=== PATIENT | male | born 1955 | race African-American/Black ===

== ENCOUNTER 2018-09-19 09:36 | Emergency (ER) | payer OTHER | END 2018-09-19 10:49 | disposition home or self-care (01) | LOC: ERS 09:36 | DX: M77.11 Lateral epicondylitis, right elbow (principal); I10 Essential (primary) hypertension; Z79.899 Other long term (current) drug therapy | CPT/HCPCS: 99283 ==

== ENCOUNTER 2018-10-31 10:14 | Emergency (ER) | payer OTHER | END 2018-10-31 11:56 | disposition home or self-care (01) | LOC: ERS 10:14 | DX: H61.22 Impacted cerumen, left ear (principal); H91.92 Unspecified hearing loss, left ear; R51 Headache | CPT/HCPCS: 69210 ==

== ENCOUNTER 2018-11-17 16:28 | Inpatient (IN) | payer OTHER ==
[2018-11-17 19:22] VITALS: BMI 27.8
[2018-11-17] MEDS ORDERED: Ondansetron ODT 4 MG TAB PO PRN ×2 (19:51→20:07)
[2018-11-17] MEDS ORDERED: Acetaminophen 325 MG TAB PO PRN ×2 (19:51→20:07)
[2018-11-17] MEDS ORDERED: Nitroglycerin 0.4 MG TAB (25 Tab Bottle) PO PRN (19:54)
[2018-11-17] MEDS ORDERED: Nitroglycerin 2% Ointment 1 INCH/1 GM Packet TOP PRN (19:54)
--- NOTE | 2018-11-17 19:59 | PDOC.FPRHP ---
- History of Present Illness Chief Complaint: Chest Pain History of Present Illness: 63 y/o M PMHx HTN, chronic pain syndrome, OA of back and R knee presents as a direct admission from his PCP's office for evaluation of chest pain. Patient reports that yesterday he began having L sided, sharp chest pain that would come and go. He is not having the pain at this moment. Denies N/V, SOB, diaphoresis. Denies any prior h/o HI or cardiac hx. He took an aspirin yesterday when it started, but did not take one today. Denies any exacerbating factors and nothing has seemed to help it feel better. 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 But yesterday he began having a migraine again with some associated dizziness when he stood up. He had orthostatic vital signs checked in clinic that were negative today. Pt reports decreased appetite and weight loss over the past several months, but upon review of his clinic records he has ranged from 197-207 lbs since 2016 and he was 200lbs in clinic today. Denies any N/V, abdominal pain, fevers. - Allergies/Adverse Reactions Allergies Allergy/AdvReac Type Severity Reaction Status Date / Time No Known Allergies Allergy Verified 11/17/18 20:55 - Home Medications Medication Instructions Recorded Confirmed Type Amlodipine [Norvasc] 10 mg PO DAILY 11/10/12 11/17/18 History Naproxen 500 mg PO BID 11/10/12 11/17/18 History Aspirin [Ecotrin] 81 mg PO DAILY 11/17/18 11/17/18 History HYDROcodone Bit/APAP 10/325 [[place]] 1 tab PO Q6H PRN 11/17/18 11/17/18 History Ibuprofen 800 mg PO Q6H PRN 11/17/18 11/17/18 History Lisinopril/Hydrochlorothiazide 0.5 tab PO BID 11/17/18 11/17/18 History [Lisinopril-Hctz 20-25 mg Tab] - History PMHx: OA, chronic pain, GERD, h/o CVA with residual left eye blindness, HTN PSHx: R knee, resection of pituitary macroadenoma FHx: Mom - HTN Social: , denies tobacco, EtOH, or drug use PCP: Dr. Estevez - [facility] - Review of Systems General: denies: fever/chills, fatigue Eyes: denies: eye pain, vision changes ENT: denies: nasal congestion, rhinorrhea Respiratory: denies: cough, shortness of breath Cardiovascular: reports: chest pain. denies: palpitation, edema Gastrointestinal: reports: diarrhea. denies: nausea, vomiting, constipation, abdominal pain, GI bleeding Genitourinary: denies: dysuria, polyuria Skin: denies: rashes, lesions Musculoskeletal: reports: pain (chronic), stiffness Neurological: denies: numbness, seizure, weakness Psychological: denies: anxiety, depression - Vital signs BP: 147/97 HR: 61 RR: 16 Tmax: 98.1 Pox: 99% on RA Wt: 90kg - Physical Exam Constitutional: NAD, awake, alert and oriented, well developed HEENT: EOMI, conjunctiva clear, grossly normal hearing, MMM Neck: supple, no LAD Chest: no-tender to palpation Heart: RRR, normal S1/S2, no murmurs/rubs/gallops, pulses present, no edema Lungs: CTAB, no respiratory distress, good air movement, no rales/rhonchi, no wheezing Abdomen: soft, non-tender, bowel sounds present Neurological: no focal deficit, CN II-XII intact Skin: good turgor, capillary refill <2 seconds Heme/Lymphatic: no unusual bruising or bleeding, no purpura Psychiatric: normal mood and affect, good judgment and insight, intact recent and remote memory FMR H&P: Results - Labs Result Diagrams: 11/19/18 04:55 11/19/18 04:55 - EKG Interpretation EKG: Rate 62, Normal sinus rhythm, left axis deviation, no ST/T wave changes FMR H&P: A/P - Problem List (1) Atypical chest pain Current Visit: Yes Status: Acute Code(s): R07.89 - OTHER CHEST PAIN (2) Headache Current Visit: Yes Status: Acute Code(s): R51 - HEADACHE (3) Osteoarthritis Current Visit: Yes Status: Acute Code(s): M19.90 - UNSPECIFIED OSTEOARTHRITIS, UNSPECIFIED SITE (4) HTN (hypertension) Current Visit: Yes Status: Acute Code(s): I10 - ESSENTIAL (PRIMARY) HYPERTENSION (5) H/O: CVA (cerebrovascular accident) Current Visit: Yes Status: Chronic Code(s): Z86.73 - PRSNL HX OF TIA (TIA), AND CEREB INFRC W/O RESID DEFICITS (6) GERD (gastroesophageal reflux disease) Current Visit: Yes Status: Acute Code(s): K21.9 - GASTRO-ESOPHAGEAL REFLUX DISEASE WITHOUT ESOPHAGITIS (7) H/O: pituitary tumor Current Visit: Yes Status: Chronic Code(s): Z87.898 - PERSONAL HISTORY OF OTHER SPECIFIED CONDITIONS - Plan Atypical Chest Pain Heart Score 4. Likely 2/2 GERD vs MSK, but will r/o coronary cause. -Will check Trop and trend q3h -Will get CXR -Monitor on tele -Aspirin -AM FLP and start pt on statin due to risk factors -TSH -Nitro prn -Repeat EKG for any new or worsening chest pain -Stress in AM, NPO after midnight Headache Pt reports similar to previous migraines prior to getting pituitary macroadenoma removed. Not currently having headache. -If recurs then will treat with reglan, benadryl, NS -Will check AM cortisol due to symptoms of dizziness, but negative orthostatic vitals HTN BP in 140s on presentation -Will restart home lisinopril-HCTZ, and amlodipine OA -Will continue home norco h/o CVA -Will continue aspirin -Will check FLP and start pt on statin due to risk factors Diet: HH and NPO after midnight VTE ppx: Lovenox Code Status: Full Disposition/LOS: Obs on Tele, length of stay likely < 48hrs Addendum - Attending - Attending Attestation Date/Time: 11/17/18 1351 I personally evaluated the patient and discussed the management with Dr. Vazquez I agree with the History, Examination, Assessment and Plan documented above with any addition or exceptions noted below. Rule out ACS. So far negative. Stress in AM. High risk for CV dz. Cards consult should be considered even if negative stress. Dizziness. Etiology unsure at this time. Rule out CV and CerebralV related. 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 Meclizine ordered. CT pending. Maximize medication and preventative care. Nu
[2018-11-17] MEDS ORDERED: Calcium Carbonate 500 MG ChewTAB PO PRN (20:07)
[2018-11-17] MEDS ORDERED: Ondansetron PF 4 MG/2 ML Vial SLOW IVP PRN (20:07)
[2018-11-17] MEDS ORDERED: HYDROcodone/Acetaminophen 7.5/325 mg Tablet PO PRN ×2 (20:07)
[2018-11-17] MEDS: Enoxaparin Sodium 40 MG/0.4 ML SYRINGE SC SCH (20:37)
[2018-11-17] MEDS: Aspirin 325 mg Enteric Coated Tablet PO SCH (20:37)
[2018-11-17 20:54] LABS: ALT (SGPT) 18 U/L (8-55); AST (SGOT) 17 U/L (5-34); Albumin 3.8 g/dL (3.4-4.8); Alkaline Phosphatase 91 U/L (40-150); Anion Gap 9 mmol/L (10-20); BUN (Urea Nitrogen) 11 mg/dL (8.4-25.7); Bilirubin, Total 0.4 mg/dL (0.2-1.2); Calc. Creatinine Clearance 102 mL/min (70-130); Calcium 9.2 mg/dL (7.8-10.44); Carbon Dioxide 28 mmol/L (23-31); Chloride 104 mmol/L (98-107); Estimated GFR-MDRD Greater than 90; Globulin 3.1 g/dL (2.4-3.5); Glucose 86 mg/dL (80-115); Potassium 3.6 mmol/L (3.5-5.1); Protein, Total 6.9 g/dL (5.8-8.1); Sodium 137 mmol/L (136-145)
[2018-11-17 20:55] LABS: Band 4 % (5-11); Hemoglobin 12.8 g/dL (14.0-18.0); Lymphocytes 22 % (21-51); MDiff Complete? YES; Mean Corpuscular HGB CONC 33.5 g/dL (32.0-36.0); Mean Corpuscular Hemoglobin 28.6 pg (27.0-31.0); Mean Corpuscular Volume 85.4 fL (78.0-98.0); Mean Platelet Volume 7.8 fL (7.4-10.4); Monocytes 4 % (0-10); Neutrophil 69 % (42-75); Platelet Count 184 thou/uL (130-400); Platelet Morphology Comment Appears Adequate; RBC Distribution Width 12.6 % (11.5-14.5); Reactive Lymphocytes 1 % (0-10); Red Blood Cell (RBC) Count 4.48 mill/uL (4.70-6.10)
[2018-11-17 21:03] LABS: Troponin I Less than 0.010 ng/mL (< 0.028)
[2018-11-17] MEDS: Lisinopril/Hydrochlorothiazide 20/25 mg Tablet PO SCH (21:10)
[2018-11-17] MEDS ORDERED: Atorvastatin Calcium 40 MG TAB PO SCH (21:45)
--- NOTE | 2018-11-17 22:10 | RAD ---
EXAM: Chest PA and lateral: HISTORY: Chest pain COMPARISON: 03/12/2009 FINDINGS: Heart: Upper normal cardiac silhouette Aorta: Gated Pulmonary vessels: Normal Costophrenic angles: Costophrenic angles are clear. Lungs: No consolidation or masses. Chronic changes are noted. Pneumothorax: No pneumothorax Osseous structures: No osseous abnormalities IMPRESSION: No acute cardiopulmonary process.
[2018-11-17] MEDS ORDERED: Meclizine HCl 25 MG TAB PO SCH (23:00)
[2018-11-17 23:29] LABS: Troponin I Less than 0.010 ng/mL (< 0.028)
[2018-11-18 02:20] LABS: #Eosinphils 0.1 thou/uL (0.0-0.7); #Lymphocytes 0.8 thou/uL (1.20-3.40); #Monocytes 0.4 thou/uL (0.11-0.59); #Neutrophils 1.6 thou/uL (1.40-6.50); %Basophils 1.5 % (0.0-1.0); %Eosinophils 4.8 % (0.0-10.0); %Lymphocytes 26.8 % (21.0-51.0); %Monocytes 14.8 % (0.0-10.0); %Neutrophils 52.1 % (42.0-75.0); Hemoglobin 12.9 g/dL (14.0-18.0); Mean Corpuscular HGB CONC 34.7 g/dL (32.0-36.0); Mean Corpuscular Hemoglobin 29.9 pg (27.0-31.0); Mean Corpuscular Volume 86.1 fL (78.0-98.0); Mean Platelet Volume 7.7 fL (7.4-10.4); Platelet Count 180 thou/uL (130-400); RBC Distribution Width 12.8 % (11.5-14.5); Red Blood Cell (RBC) Count 4.31 mill/uL (4.70-6.10)
[2018-11-18 02:45] LABS: Troponin I 0.013 ng/mL (< 0.028)
[2018-11-18 03:21] LABS: ALT (SGPT) 17 U/L (8-55); AST (SGOT) 18 U/L (5-34); Albumin 3.9 g/dL (3.4-4.8); Alkaline Phosphatase 91 U/L (40-150); Anion Gap 10 mmol/L (10-20); BUN (Urea Nitrogen) 12 mg/dL (8.4-25.7); Bilirubin, Total 0.4 mg/dL (0.2-1.2); Calc. Creatinine Clearance 104 mL/min (70-130); Calcium 9.6 mg/dL (7.8-10.44); Carbon Dioxide 28 mmol/L (23-31); Cardiac Risk 3.3 (Less than 4.5); Chloride 103 mmol/L (98-107); Cholesterol 132 mg/dl (< 200 Desired); Estimated GFR-MDRD Greater than 90; Glucose 117 mg/dL (80-115); HDL Cholesterol 40 mg/dL (>60 Neg Risk); LDL Cholesterol, Calculated 72 mg/dL; Potassium 3.5 mmol/L (3.5-5.1); Protein, Total 6.9 g/dL (5.8-8.1); Sodium 137 mmol/L (136-145); Triglycerides 101 mg/dL (Less than 150)
--- NOTE | 2018-11-18 05:28 | PDOC.FM ---
- Subjective Subjective: Pt denies any chest pain or shortness of breath overnight. He does note some instances of mild dizziness with movement but denies any room spinning or near syncope. - Objective MAR Reviewed: Yes Vital Signs & Weight: Vital Signs (12 hours) Temp Pulse Resp BP BP Pulse Ox 11/18/18 02:38 98.5 F 60 20 149/89 H 98 11/17/18 23:33 98.3 F 58 L 16 150/90 H 98 11/17/18 20:33 98.2 F 61 16 161/96 H 99 11/17/18 19:54 99 11/17/18 18:35 98.1 F 61 16 147/97 H 99 Weight Weight 90.401 kg I&O: 11/16/18 11/17/18 11/18/18 06:59 06:59 06:59 Output Total 75 Balance -75 Result Diagrams: 11/18/18 02:12 11/18/18 02:12 Phys Exam - Physical Examination Constitutional: NAD Neck: full ROM Respiratory: clear to auscultation bilateral Cardiovascular: RRR Slight splitting of S1 and S2 Gastrointestinal: soft, non-tender Musculoskeletal: no edema Neurological: moves all 4 limbs Psychiatric: normal affect, A&O x 3 Dx/Plan (1) Atypical chest pain Code(s): R07.89 - OTHER CHEST PAIN Status: Acute (2) GERD (gastroesophageal reflux disease) Code(s): K21.9 - GASTRO-ESOPHAGEAL REFLUX DISEASE WITHOUT ESOPHAGITIS Status: Acute (3) H/O: CVA (cerebrovascular accident) Code(s): Z86.73 - PRSNL HX OF TIA (TIA), AND CEREB INFRC W/O RESID DEFICITS Status: Acute (4) H/O: pituitary tumor Code(s): Z87.898 - PERSONAL HISTORY OF OTHER SPECIFIED CONDITIONS Status: Acute (5) HTN (hypertension) Code(s): I10 - ESSENTIAL (PRIMARY) HYPERTENSION Status: Acute (6) Headache Code(s): R51 - HEADACHE Status: Acute - Plan Plan: Atypical Chest Pain Heart Score 4. Likely 2/2 GERD vs MSK, but will r/o coronary cause. -Troponin trend was negative, TSH was normal -Will get CXR -Monitor on tele -Aspirin -Lipid panel was WNL, will cont statin based on ASCVD -Nitro prn -Repeat EKG for any new or worsening chest pain -Stress test and echo today, DC if normal Headache Pt reports similar to previous migraines prior to getting pituitary macroadenoma removed. Not currently having headache. -If recurs then will treat with reglan, benadryl, NS -Will check AM cortisol due to symptoms of dizziness, but negative orthostatic vitals -Brain CT: chronic findings, no acute intracranial abnormalities HTN BP in 140s on presentation -Will restart home lisinopril-HCTZ, and amlodipine OA -Will continue home norco h/o CVA -Will continue aspirin -Will check FLP and start pt on statin due to risk factors Diet: NPO until VTE ppx: Lovenox Code Status: Full Disposition/LOS: Obs on Tele, length of stay likely < 48hrs
--- NOTE | 2018-11-18 08:05 | CT ---
CT BRAIN WITHOUT CONTRAST: HISTORY: Dizziness. COMPARISON: None. FINDINGS: No acute hemorrhage or infarct. No midline shift or mass effect. Moderate to severe periventricular a nd subcortical white matter disease. Paranasal sinuses and mastoids are clear. Calvarium is intact. IMPRESSION: Chronic findings. No acute intracranial abnormality. Transcribed Date/Time: 11/18/2018 8:58 AM
[2018-11-18] MEDS: Lisinopril/Hydrochlorothiazide 20/25 mg Tablet PO SCH ×2 (08:45→20:51)
[2018-11-18] MEDS: Aspirin 325 mg Enteric Coated Tablet PO SCH (08:45)
[2018-11-18] MEDS: Amlodipine 10 MG TAB PO SCH (08:45)
[2018-11-18] MEDS: Meclizine HCl 25 MG TAB PO PRN ×2 (08:45→20:53)
[2018-11-18] MEDS: Ubidecarenone 50 MG CAP PO SCH (08:46)
[2018-11-18] MEDS ORDERED: ADENOSINE 60 MG/20 ML VIAL ONE (09:09)
--- NOTE | 2018-11-18 11:25 | PRG ---
DATE OF SERVICE: 11/18/2018 I have discussed the case with Dr. Joe Santos and agree with his assessment plan. Mr. Montero is a 63-year-old white male patient with some cardiac risk factors, who presented with atypical chest pain. He has been scheduled for a stress Myoview test, which is currently underway. Further evaluation and treatment will depend upon the results of the initial exam. His heart score was 4. Job ID: [id number]
--- NOTE | 2018-11-18 12:46 | NM ---
NUCLEAR MEDICINE CARDIAC MYOCARDIAL PERFUSION SPECT EJECTION FRACTION STUDY WALL MOTION CINE: DATE: 11/18/2018 HISTORY: 63-year-old hypertensive male presents with acute chest pain. TECHNIQUE: Number of days: 1 Rest study: Technetium 99m-sestamibi (Cardiolite) dose: 10.8 mCi Pharmacologic stress: Adenosine dose: 50.4 mg Stress study: Technetium 99m-sestamibi (Cardiolite) dose: 30.5 mCi FINDINGS: CARDIAC (MYOCARDIAL PERFUSION) SPECT There is a subtle finding of a small, faint focus of apparently decreased uptake at the anteroseptal wall on the stress images, not seen on the rest images. It is uncertain whether this represents a focus of mild reversible ischemia or artifact. No other perfusion defects are visualized. EJECTION FRACTION STUDY Left ventricular EF = 49 % WALL MOTION CINE Normal IMPRESSION: Questionable small focus of reversible ischemia at the anteroseptal region versus artifact.
--- NOTE | 2018-11-18 18:37 | CON ---
DATE OF CONSULTATION: HISTORY OF PRESENT ILLNESS: The patient is a very pleasant 63-year-old gentleman who presented for evaluation of chest discomfort. The patient has a previous history of cerebrovascular accident. The patient was in his usual state of health when the day prior to admission, he developed left-sided chest pain. This lasted only 2 to 3 seconds. He went to see his primary physician and was admitted for further evaluation. The patient denies any previous discomfort. The patient states he can walk without any difficulty. The patient's only known cardiac risk factor is hypertension. PAST MEDICAL HISTORY: 1. CVA. 2. Pituitary tumor. 3. Hypertension. PAST SURGICAL HISTORY: He has had pituitary tumor removed. SOCIAL HISTORY: Nonsmoker. FAMILY HISTORY: No strong family history of heart disease. MEDICATIONS: On admission; 1. Aspirin 81 daily. 2. Lisinopril-hydrochlorothiazide 20-25 half a tablet p.o. b.i.d. 3. Naprosyn 500 b.i.d. 4. Norvasc 10 daily. ALLERGIES: NO KNOWN DRUG ALLERGIES. REVIEW OF SYSTEMS: Ten-point system otherwise unremarkable. PHYSICAL EXAMINATION: GENERAL: This is a well-developed gentleman, in no acute distress. VITAL SIGNS: Blood pressure 133/86. NECK: No jugular venous distention. No carotid bruits. LUNGS: Clear to auscultation. HEART: Regular rate and rhythm. Normal S1, S2. ABDOMEN: Nondistended. EXTREMITIES: Show no edema. VASCULAR: Radial pulses are 2+. LABORATORY RESULTS: White blood cell count was 3.0, hemoglobin 12.9, hematocrit 37.1, and platelets 180. Sodium 137, potassium 3.5, chloride 103, bicarbonate 28, BUN 12, creatinine 0.93, and glucose 117. Troponin less than 0.01. His EKG revealed him to have normal sinus rhythm, left axis deviation, and mild voltage criteria for LVH. His Cardiolite stress test revealed him to have normal left ventricular ejection fraction of 49%. There was a small focus of reversible ischemia in the anteroseptal wall versus artifact. Echocardiogram revealed normal left ventricular ejection fraction 50% to 55% with mild aortic, mitral, and tricuspid regurgitation. IMPRESSION: 1. Atypical chest pain. 2. Abnormal stress test. 3. History of cerebrovascular accident. 4. Hypertension. 5. History of pituitary tumor. PLAN: This gentleman presents for evaluation of atypical chest pain. He underwent a cardiac stress test that revealed possible ischemia. I discussed the option of the patient undergoing further evaluation including a cardiac catheterization. The patient is adamant that he does not want to undergo this procedure. The patient will continue on medical therapy including aspirin therapy. If the patient should change his mind, we will be happy to proceed with this during this hospitalization. Please call my office. Job ID: [id number]
[2018-11-18] MEDS: Atorvastatin Calcium 40 MG TAB PO SCH (20:48)
[2018-11-18] MEDS: Enoxaparin Sodium 40 MG/0.4 ML SYRINGE SC SCH (20:53)
[2018-11-19 05:19] LABS: #Eosinphils 0.2 thou/uL (0.0-0.7); #Lymphocytes 1.2 thou/uL (1.20-3.40); #Monocytes 0.6 thou/uL (0.11-0.59); #Neutrophils 2.9 thou/uL (1.40-6.50); %Basophils 0.2 % (0.0-1.0); %Eosinophils 4.3 % (0.0-10.0); %Lymphocytes 24.4 % (21.0-51.0); %Monocytes 11.9 % (0.0-10.0); %Neutrophils 59.3 % (42.0-75.0); Hemoglobin 13.8 g/dL (14.0-18.0); Mean Corpuscular HGB CONC 33.9 g/dL (32.0-36.0); Mean Corpuscular Hemoglobin 29.2 pg (27.0-31.0); Mean Platelet Volume 8.1 fL (7.4-10.4); Platelet Count 218 thou/uL (130-400); RBC Distribution Width 12.8 % (11.5-14.5); Red Blood Cell (RBC) Count 4.73 mill/uL (4.70-6.10); White Blood Cell (WBC) Count 4.9 thou/uL (4.8-10.8)
[2018-11-19 05:32] LABS: ALT (SGPT) 20 U/L (8-55); AST (SGOT) 17 U/L (5-34); Albumin 3.8 g/dL (3.4-4.8); Alkaline Phosphatase 93 U/L (40-150); Anion Gap 12 mmol/L (10-20); BUN (Urea Nitrogen) 16 mg/dL (8.4-25.7); Bilirubin, Total 0.5 mg/dL (0.2-1.2); Calc. Creatinine Clearance 77 mL/min (70-130); Calcium 9.2 mg/dL (7.8-10.44); Carbon Dioxide 23 mmol/L (23-31); Chloride 106 mmol/L (98-107); Estimated GFR-MDRD 70; Globulin 3.4 g/dL (2.4-3.5); Glucose 104 mg/dL (80-115); Potassium 3.4 mmol/L (3.5-5.1); Protein, Total 7.2 g/dL (5.8-8.1); Sodium 138 mmol/L (136-145)
--- NOTE | 2018-11-19 05:47 | PDOC.FM ---
- Subjective Subjective: Pt denies any chest pain or shortness of breath through the night. He spoke with Dr. Eugeen, cardiology, and Dr. Conn, PCP, yesterday and decided to proceed with a cardiac catheterization that is tentatively planned for tomorrow. He denies any questions about the procedure at this time. Pt notes some continuation of his dizziness, worse when he is up and moving around, better after meclizine. - Objective MAR Reviewed: Yes Vital Signs & Weight: Vital Signs (12 hours) Temp Pulse Resp BP BP Pulse Ox 11/18/18 23:48 98.2 F 82 16 122/80 99 11/18/18 20:51 87 120/77 11/18/18 19:16 99.3 F 86 16 131/79 98 Weight Admit Weight 90.401 kg Weight 88.536 kg I&O: 11/17/18 11/18/18 11/19/18 06:59 06:59 06:59 Intake Total 240 1500 Output Total 75 Balance 165 1500 Result Diagrams: 11/19/18 04:55 11/19/18 04:55 Phys Exam - Physical Examination Constitutional: NAD HEENT: moist MMs Neck: no JVD, full ROM Respiratory: clear to auscultation bilateral Cardiovascular: RRR slight splitting of S1/S2 vs short early systolic murmur Gastrointestinal: soft, non-tender Musculoskeletal: no edema, pulses present Neurological: moves all 4 limbs Psychiatric: normal affect, A&O x 3 Dx/Plan (1) Atypical chest pain Code(s): R07.89 - OTHER CHEST PAIN Status: Acute (2) GERD (gastroesophageal reflux disease) Code(s): K21.9 - GASTRO-ESOPHAGEAL REFLUX DISEASE WITHOUT ESOPHAGITIS Status: Acute (3) H/O: CVA (cerebrovascular accident) Code(s): Z86.73 - PRSNL HX OF TIA (TIA), AND CEREB INFRC W/O RESID DEFICITS Status: Chronic (4) H/O: pituitary tumor Code(s): Z87.898 - PERSONAL HISTORY OF OTHER SPECIFIED CONDITIONS Status: Chronic (5) HTN (hypertension) Code(s): I10 - ESSENTIAL (PRIMARY) HYPERTENSION Status: Acute (6) Headache Code(s): R51 - HEADACHE Status: Acute - Plan Plan: Atypical Chest Pain Heart Score 4. Likely 2/2 GERD vs MSK, but will r/o coronary cause. -Troponin trend was negative, TSH was normal -Will get CXR -Monitor on tele -Aspirin -Lipid panel was WNL, will cont statin based on ASCVD -Nitro prn -Repeat EKG for any new or worsening chest pain -Stress test: area of decreased uptake vs artifact in anteroseptal region -Echo: EF 50-55% -Will plan for cardiac cath tomorrow, NPO after midnight Headache Pt reports similar to previous migraines prior to getting pituitary macroadenoma removed. Not currently having headache. -If recurs then will treat with reglan, benadryl, NS -Ngative orthostatic vitals -Brain CT: chronic findings, no acute intracranial abnormalities -Normal a.m. cortisol HTN BP in 140s on presentation, 120s now -Cont home lisinopril-HCTZ, and amlodipine OA -Will continue home norco h/o CVA -Will continue aspirin -Will check FLP and start pt on statin due to risk factors Hypokalemia - Will supplement with 40 KCl PO Diet: HH VTE ppx: Lovenox Code Status: Full Disposition/LOS: Inpatient Telemetry
[2018-11-19] MEDS ORDERED: Potassium Chloride 20 MEQ TAB PO SCH ×2 (06:45→12:30)
[2018-11-19] MEDS: Amlodipine 10 MG TAB PO SCH (10:12)
[2018-11-19] MEDS: Aspirin 325 mg Enteric Coated Tablet PO SCH (10:12)
[2018-11-19] MEDS: Ubidecarenone 50 MG CAP PO SCH (10:13)
[2018-11-19] MEDS: Lisinopril/Hydrochlorothiazide 20/25 mg Tablet PO SCH ×2 (10:13→20:34)
[2018-11-19] MEDS ORDERED: Meclizine HCl 25 MG TAB PO PRN (12:18)
--- NOTE | 2018-11-19 12:41 | PRG ---
DATE OF SERVICE: 11/19/2018 Mr. Montero was visited yesterday by Cardiology. He initially elected to not undergo cardiac cath, but spoke with him again and he is agreeable to this procedure. Later today, I suppose he will be taken for the cardiac cath, if not tomorrow. He has had no further chest discomfort and is hemodynamically stable. His stress Myoview did show what appeared to be a possible anteroseptal defect and this is what will be investigated with cardiac catheterization. Job ID: [id number]
--- NOTE | 2018-11-19 12:57 | STRESS ---
Acquisition Time: 2018-11-18 10:54:24 Total Exercise Time: 00:02:07 Test Indications: CHEST PAIN Medications: Protocol: ADENOSINE Max HR: 093 BPM 59% of Pred: 157 BPM Max BP: 136/080 mmHG Max Work Load: 1.0 METS THE PATIENT WAS INJECTED WITH ADENOSINE. HE DID NOT DEVELOP CHEST PAIN. THERE WAS NO SIGNIFICANT ST SEGMENT DEPRESSION. AWAIT NUCLEAR IMAGES FOR DEFINITIVE DIAGNOSIS. Confirmed by HENRI CARROLL ([id number]), editorial manager JENNIFER CEE ([id number]) on 11/19/2018 12:57:04 PM Referred By: MD CRAIG Confirmed By:HENRI CARROLL
[2018-11-19] MEDS ORDERED: Communication Order-Pharmacy FS SCH (14:15)
[2018-11-19] MEDS: Enoxaparin Sodium 40 MG/0.4 ML SYRINGE SC SCH (20:34)
[2018-11-19] MEDS: Atorvastatin Calcium 40 MG TAB PO SCH (20:35)
--- NOTE | 2018-11-20 05:20 | PDOC.FM ---
- Subjective Subjective: Patient is resting comfortably this morning. He states his shortness of breath is better, and denies any chest pain. He states that he feels dizzy still, but this only occurs while he is urinating. Tele monitoring overnight showed mainly NSR with rates ranging 58-88. Few Sinus candido runs. Patient goes for cardiac cath today. - Objective Vital Signs & Weight: Vital Signs (12 hours) Temp Pulse Resp BP BP BP Pulse Ox 11/20/18 03:54 97.8 F 81 18 117/85 98 11/19/18 20:34 81 133/85 11/19/18 19:00 98.3 F 81 16 133/85 97 Weight Admit Weight 90.401 kg Weight 89.63 kg I&O: 11/18/18 11/19/18 11/20/18 06:59 06:59 06:59 Intake Total 240 1500 480 Output Total 75 50 Balance 165 1450 480 Result Diagrams: 11/20/18 05:36 11/20/18 05:36 Additional Labs: AM Cortisol: 6.5 Radiology Reviewed by me: Yes (CXR: no acute process. Brain CT: no acute hemorrhage or infarct. ) Phys Exam - Physical Examination Constitutional: NAD HEENT: PERRLA, moist MMs Neck: supple, full ROM Respiratory: no wheezing, no rales, no rhonchi Cardiovascular: RRR, no significant murmur, no rub Gastrointestinal: soft, non-tender, no distention, positive bowel sounds Musculoskeletal: no edema, pulses present Neurological: non-focal, normal sensation, moves all 4 limbs Psychiatric: normal affect, A&O x 3 Skin: no rash, normal turgor Dx/Plan (1) Atypical chest pain Code(s): R07.89 - OTHER CHEST PAIN Status: Acute (2) GERD (gastroesophageal reflux disease) Code(s): K21.9 - GASTRO-ESOPHAGEAL REFLUX DISEASE WITHOUT ESOPHAGITIS Status: Acute (3) HTN (hypertension) Code(s): I10 - ESSENTIAL (PRIMARY) HYPERTENSION Status: Acute (4) Headache Code(s): R51 - HEADACHE Status: Acute (5) Osteoarthritis Code(s): M19.90 - UNSPECIFIED OSTEOARTHRITIS, UNSPECIFIED SITE Status: Acute (6) H/O: CVA (cerebrovascular accident) Code(s): Z86.73 - PRSNL HX OF TIA (TIA), AND CEREB INFRC W/O RESID DEFICITS Status: Chronic (7) H/O: pituitary tumor Code(s): Z87.898 - PERSONAL HISTORY OF OTHER SPECIFIED CONDITIONS Status: Chronic (8) Dizziness Code(s): R42 - DIZZINESS AND GIDDINESS Status: Acute - Plan Plan: 1. Atypical chest pain - Heart score of 4--> age, mod suspicion and hx. - echo 55-60% EF with mild MR, AR, TR. Normal LV size. - CXR--> no acute process - Nuclear stress test --> LVEF 49%. Questionable small focus of reversible ischemia at the anteroseptal region, vs. artifact. - Dr. Eugene recommends cath. Cath done this morning and software build engineer cleared patient to go home. No significant stenosis and no intervention planned. -ASA 81 mg - Lisinopril 20/HCTZ 25 1/2 pill BID - Norvasc 10 mg 2. Dizziness -continue meclizine 50mg 3. GERD -stable, continue tums 4. HTN -continue home meds 5. Hx of CVA -Brain CT --> no acute hemorrhage or ischemic infarct. Chronic findings present. 6. Headache - continue home norco 7. Hx of pituitary tumor - Negative brain CT - Normal morning cortisol level of 6.5 8. Full code Disposition: Stable, discharge to home today.
[2018-11-20] MEDS: Ubidecarenone 50 MG CAP PO SCH (05:26)
[2018-11-20] MEDS: Aspirin 325 mg Enteric Coated Tablet PO SCH (05:26)
[2018-11-20] MEDS: Lisinopril/Hydrochlorothiazide 20/25 mg Tablet PO SCH (05:28)
[2018-11-20] MEDS: Amlodipine 10 MG TAB PO SCH (05:28)
[2018-11-20 05:59] LABS: #Eosinphils 0.2 thou/uL (0.0-0.7); #Lymphocytes 1.1 thou/uL (1.20-3.40); #Monocytes 0.6 thou/uL (0.11-0.59); #Neutrophils 2.4 thou/uL (1.40-6.50); %Basophils 0.2 % (0.0-1.0); %Eosinophils 3.5 % (0.0-10.0); %Lymphocytes 26.5 % (21.0-51.0); %Monocytes 13.8 % (0.0-10.0); Mean Corpuscular HGB CONC 33.1 g/dL (32.0-36.0); Mean Corpuscular Hemoglobin 28.5 pg (27.0-31.0); Platelet Count 216 thou/uL (130-400); RBC Distribution Width 12.8 % (11.5-14.5); White Blood Cell (WBC) Count 4.3 thou/uL (4.8-10.8)
[2018-11-20 06:22] LABS: ALT (SGPT) 21 U/L (8-55); AST (SGOT) 18 U/L (5-34); Albumin 3.9 g/dL (3.4-4.8); Alkaline Phosphatase 91 U/L (40-150); Anion Gap 10 mmol/L (10-20); BUN (Urea Nitrogen) 16 mg/dL (8.4-25.7); Bilirubin, Total 0.6 mg/dL (0.2-1.2); Calc. Creatinine Clearance 81 mL/min (70-130); Calcium 9.6 mg/dL (7.8-10.44); Carbon Dioxide 26 mmol/L (23-31); Chloride 105 mmol/L (98-107); Estimated GFR-MDRD 76; Globulin 3.3 g/dL (2.4-3.5); Glucose 99 mg/dL (80-115); Protein, Total 7.2 g/dL (5.8-8.1); Sodium 137 mmol/L (136-145)
[2018-11-20] MEDS ORDERED: Lidocaine 1% (PF) 30 ML VIAL ONE (08:06)
[2018-11-20] MEDS ORDERED: Midazolam HCl 2 mg/2 ml Vial ONE (08:22)
[2018-11-20] MEDS ORDERED: Nitroglycerin 0.4 MG TAB (25 Tab Bottle) SL PRN (08:44)
[2018-11-20] MEDS ORDERED: Sodium Chloride 0.9% 200 ML IV PRN (08:44)
[2018-11-20] MEDS ORDERED: Acetaminophen/Codeine 30-300mg Tablet PO PRN ×2 (08:44)
--- NOTE | 2018-11-20 11:35 | PRG ---
DATE OF SERVICE: 11/20/2018 Mr. Montero had just returned from his heart catheterization. He is in no distress. He states that the javascript software engineer says he can go home this afternoon, so I assume his heart catheterization was normal, but we are of course awaiting on official report. He should be in bedrest for 4 to 6 hours as his PCI was to the right groin. Job ID: [id number]
[2018-11-20] MEDS ORDERED: Iopamidol 370 76% 100 ML VIAL ONE (11:57)
[2018-11-20 15:59] VITALS: BP 128/78; TEMP 98.2
--- NOTE | 2018-11-22 12:09 | DIS ---
DATE OF ADMISSION: 11/17/2018 DATE OF DISCHARGE: 11/20/2018 RESIDENT: Jessi Bal DO CONSULTATIONS: Dr. Eugene, cardiology. PROCEDURES: Cardiac cath: LMCA normal. No stenosis. LAD, lesion on mid LAD proximal subsection, 20% stenosis, 7 mm in length. Lesion on first diagonal, 30% stenosis, 5 mm in length. Left circumflex, normal. No stenosis. RCA, lesion on first RPL, 30% stenosis, 8 mm in length. No significant stenosis. No intervention at this time. Nuclear stress test showed an area of questionable small focus of reversible ischemia at the anterior septal region versus artifact with left ventricular ejection fraction of . Echo; EF of 50% to 55%. Mild MR, AR, TR. Normal left ventricular size. DIAGNOSES: 1. Atypical chest pain. 2. Hypertension. 3. Gastroesophageal reflux disease. 4. Headache. 5. Osteoarthritis. 6. History of CVA. 7. History of pituitary tumor. 8. Dizziness. DISCHARGE MEDICATIONS: 1. Norvasc 10 mg daily. 2. Naproxen 500 mg b.i.d. 3. Aspirin 81 mg daily. 4. Lisinopril/hydrochlorothiazide 20/25 one half tablet b.i.d. 5. Ibuprofen 800 q.6 hours p.r.n. 6. Hydrocodone, [place] 1 tablet q.6 hours p.r.n. 7. Acetaminophen 325 q.4 hours p.r.n. 2 tablets. 8. Atorvastatin 40 mg once daily. 9. TUMS 500 mg 2 tablets q.4 hours p.r.n. 10. Meclizine 25 mg 2 tablets q.12 hours p.r.n. 11. Nitrostat 0.4 mg q.5 minutes p.r.n. 12. Coenzyme Q10 50 mg 2 tablets daily. HISTORY OF PRESENT ILLNESS AND HOSPITAL COURSE: A 63-year-old male with a history of hypertension and chronic pain syndrome, osteoarthritis of the back and right knee, presents to the ED directly from his PCP's office for evaluation of chest pain, exertional shortness of breath and dizziness with any exertion or movement. The chest pain was in his left side with sharp in character, and it will come and go. He denied any nausea, vomiting, difficulty breathing, or diaphoresis with this chest pain at that time. He does not have any prior cardiac history. The patient also has a past history of pituitary macroadenoma that was removed surgically. This surgery ceased migraines. He began having headache the day before admission that was also associated with some of his dizziness, and felt lightheaded when he would stand up. The patient's chest x-ray showed no acute process. Brain CT showed no acute hemorrhage or infarct, just chronic findings. Nuclear stress test showed questionable small focus of reversible ischemia at anterior septal region versus artifact with left ventricular ejection fraction of . Echo showed EF of 50% to 55%. Mild MR, AR, and TR. Normal left ventricular size. Cardiac cath showed no significant stenosis, done by Dr. Eugene. DISPOSITION: Stable. DISCHARGE INSTRUCTIONS: 1. Location, to home. 2. Diet, heart healthy. 3. Activity, ad hoa. 4. Follow up in [address] Estevez and return to the ER if bleeding or hematoma forms over the femoral cardiac cath site. Job ID: [id number]
== END 2018-11-20 16:41 | disposition home or self-care (01) | DRG 287 ==
LOC: 2SW 17:29 → UNDOADMOB 17:29 → 2SW 17:38 → OBSVTOIN 17:38 → 2NO 11-19 15:56
PROVIDERS: ADMIT Family Medicine; ATTEND Family Medicine
PROC: 4A023N8 Measurement of Cardiac Sampling and Pressure, Bilateral, Percutaneous Approach (ICD-10-PCS; principal; 2018-11-17)
PROC: B2151ZZ Fluoroscopy of Left Heart using Low Osmolar Contrast (ICD-10-PCS; 2018-11-17)
PROC: B2111ZZ Fluoroscopy of Multiple Coronary Arteries using Low Osmolar Contrast (ICD-10-PCS; 2018-11-17)
DX: R07.89 Other chest pain (principal); I10 Essential (primary) hypertension; G89.4 Chronic pain syndrome; M17.11 Unilateral primary osteoarthritis, right knee; K21.9 Gastro-esophageal reflux disease without esophagitis; G43.909 Migraine, unspecified, not intractable, without status migrainosus; E87.6 Hypokalemia; I08.3 Combined rheumatic disorders of mitral, aortic and tricuspid valves; Z87.898 Personal history of other specified conditions; Z86.73 Personal history of transient ischemic attack (TIA), and cerebral infarction without residual deficits
CPT/HCPCS: 36415; 70450; 71046; 78452; 80053; 80061; 82533; 83690; 83735; 84443; 84484; 85025; 93005; 93010; 93017; 93306; 93458; 94760; 99152; A9500; C1769; J0153; J1644; J1650; J2001; J2250; J8597; Q9967

== ENCOUNTER 2019-07-09 08:51 | Emergency (ER) | payer OTHER | END 2019-07-09 10:14 | disposition home or self-care (01) | LOC: ERS 08:51 | DX: J02.9 Acute pharyngitis, unspecified (principal); I10 Essential (primary) hypertension | CPT/HCPCS: 87081; 87430; 99283 ==

== ENCOUNTER 2020-03-04 13:18 | Outpatient (CLI) | payer OTHER | END 2020-03-04 13:19 | disposition home or self-care (01) | LOC: ULT 13:18 | PROVIDERS: ATTEND Student in an Organized Health Care Education/Training Program | DX: R06.02 Shortness of breath (principal); I08.8 Other rheumatic multiple valve diseases | CPT/HCPCS: 93306 ==

== ENCOUNTER 2020-06-11 14:11 | Inpatient (IN) | payer MEDICARE, MEDICAID ==
[~2020-06-11 14:11] MED LIST: Iopamidol-370 76% 500 ML 1 ML ONE
[2020-06-11 14:33] LABS: #Eosinphils 0.2 thou/uL (0.0-0.7); #Lymphocytes 1.2 thou/uL (1.20-3.40); #Monocytes 0.6 thou/uL (0.11-0.59); #Neutrophils 3.8 thou/uL (1.40-6.50); %Basophils 0.7 % (0.0-1.0); %Lymphocytes 20.6 % (21.0-51.0); %Monocytes 10.6 % (0.0-10.0); %Neutrophils 65.1 % (42.0-75.0); Hemoglobin 13.2 g/dL (14.0-18.0); Mean Corpuscular HGB CONC 34.4 g/dL (32.0-36.0); Mean Corpuscular Hemoglobin 29.5 pg (27.0-31.0); Platelet Count 206 thou/uL (130-400); RBC Distribution Width 12.6 % (11.5-14.5); Red Blood Cell (RBC) Count 4.47 mill/uL (4.70-6.10); White Blood Cell (WBC) Count 5.8 thou/uL (4.8-10.8)
[2020-06-11] MEDS ORDERED: niCARdipine 20MG In NaCl 20 MG/200 ML BAG ONE (14:37)
[2020-06-11 14:39] LABS: PTT 27.6 sec (22.9-36.1); Prothrombin Time 13.3 sec (12.0-14.7)
[2020-06-11 15:01] LABS: AST (SGOT) 19 U/L (5-34); Anion Gap 12 mmol/L (10-20); Bilirubin, Total 0.5 mg/dL (0.2-1.2); Calcium 9.4 mg/dL (7.8-10.44); Carbon Dioxide 25 mmol/L (23-31); Chloride 107 mmol/L (98-107); Potassium 4.1 mmol/L (3.5-5.1); Protein, Total 7.3 g/dL (5.8-8.1); Sodium 140 mmol/L (136-145)
[2020-06-11 15:08] LABS: Albumin 3.9 g/dL (3.4-4.8); Globulin 3.4 g/dL (2.4-3.5)
[2020-06-11 15:11] LABS: Glucose 96 mg/dL (80-115)
[2020-06-11 15:13] LABS: Alkaline Phosphatase 104 U/L (40-110)
[2020-06-11 15:14] LABS: Calc. Creatinine Clearance 0 mL/min (70-130)
[2020-06-11 15:15] LABS: BUN (Urea Nitrogen) 13 mg/dL (8.4-25.7)
[2020-06-11 15:16] LABS: ALT (SGPT) 14 U/L (8-55)
[2020-06-11 15:17] LABS: CK (CPK) 203 U/L (30-200)
[2020-06-11] MEDS ORDERED: Communication Order-Pharmacy FS SCH (15:26)
[2020-06-11] MEDS ORDERED: niCARdipine 25 MG in Sodium Chloride 0.9% 250 ML 240 ML IVPB PRN (15:26)
[2020-06-11] MEDS ORDERED: hydrALAZINE 20 MG/ML VIAL SLOW IVP PRN (15:26)
[2020-06-11 19:04] LABS: SARS-CoV-2 NAA Rapid Test Not Detected (NotDetected)
[2020-06-12] MEDS ORDERED: Calcium Carbonate 500 MG ChewTAB PO PRN (06:35)
[2020-06-12] MEDS: Labetalol HCl 100 MG/20 ML VIAL SLOW IVP PRN ×3 (09:44→12:03)
[2020-06-12] MEDS ORDERED: hydrOXYzine 10 MG TAB PO SCH (15:45)
[2020-06-12 16:10] LABS: #Eosinphils 0.1 thou/uL (0.0-0.7); #Lymphocytes 1.1 thou/uL (1.20-3.40); #Monocytes 0.7 thou/uL (0.11-0.59); %Basophils 0.4 % (0.0-1.0); %Eosinophils 1.7 % (0.0-10.0); %Lymphocytes 13.6 % (21.0-51.0); %Monocytes 8.9 % (0.0-10.0); %Neutrophils 75.5 % (42.0-75.0); Hemoglobin 14.4 g/dL (14.0-18.0); Mean Corpuscular HGB CONC 34.2 g/dL (32.0-36.0); Mean Corpuscular Hemoglobin 29.3 pg (27.0-31.0); Mean Corpuscular Volume 85.7 fL (78.0-98.0); Platelet Count 214 thou/uL (130-400); RBC Distribution Width 12.6 % (11.5-14.5); Red Blood Cell (RBC) Count 4.92 mill/uL (4.70-6.10)
[2020-06-12 16:30] LABS: ALT (SGPT) 13 U/L (8-55); AST (SGOT) 17 U/L (5-34); Alkaline Phosphatase 111 U/L (40-110); Anion Gap 12 mmol/L (10-20); BUN (Urea Nitrogen) 10 mg/dL (8.4-25.7); Bilirubin, Total 0.6 mg/dL (0.2-1.2); Calc. Creatinine Clearance 99 mL/min (70-130); Calcium 9.5 mg/dL (7.8-10.44); Carbon Dioxide 24 mmol/L (23-31); Cardiac Risk 4.3 (Less than 4.5); Chloride 104 mmol/L (98-107); Cholesterol 172 mg/dl (< 200 Desired); Globulin 3.7 g/dL (2.4-3.5); Glucose 112 mg/dL (80-115); HDL Cholesterol 40 mg/dL (>60 Neg Risk); LDL Cholesterol, Calculated 109 mg/dL; Potassium 3.7 mmol/L (3.5-5.1); Protein, Total 7.7 g/dL (5.8-8.1); Sodium 136 mmol/L (136-145); Triglycerides 113 mg/dL (Less than 150)
[2020-06-12] MEDS: hydrOXYzine 10 MG TAB PO SCH (19:49)
[2020-06-12] MEDS: HYDROcodone/Acetaminophen 10/325 mg Tablet PO PRN (19:53)
[2020-06-13] MEDS: hydrOXYzine 10 MG TAB PO SCH ×3 (08:29→20:48)
[2020-06-13] MEDS: Aspirin 325 mg Enteric Coated Tablet PO SCH (08:30)
[2020-06-13] MEDS: Clopidogrel Bisulfate 75 MG TAB PO SCH (08:30)
[2020-06-13] MEDS: Lisinopril/Hydrochlorothiazide 20/25 mg Tablet PO SCH ×2 (08:34→20:49)
[2020-06-13] MEDS: Atorvastatin Calcium 40 MG TAB PO SCH (20:48)
[2020-06-14] MEDS: Lisinopril/Hydrochlorothiazide 20/25 mg Tablet PO SCH ×2 (08:16→19:49)
[2020-06-14] MEDS: hydrOXYzine 10 MG TAB PO SCH ×3 (08:16→19:50)
[2020-06-14] MEDS: Clopidogrel Bisulfate 75 MG TAB PO SCH (08:16)
[2020-06-14] MEDS: Aspirin 325 mg Enteric Coated Tablet PO SCH (08:16)
[2020-06-14] MEDS ORDERED: Amlodipine 10 MG TAB PO SCH (09:00)
[2020-06-14] MEDS: HYDROcodone/Acetaminophen 10/325 mg Tablet PO PRN (09:20)
[2020-06-14 19:41] VITALS: BP 136/90; TEMP 98.8
[2020-06-14] MEDS: Atorvastatin Calcium 40 MG TAB PO SCH (19:50)
== END 2020-06-14 20:58 | DRG 62 ==
LOC: ERS 14:11 → ERHOLD 14:57 → CCU 18:42 → 2SE 06-12 16:43
PROVIDERS: ADMIT Student in an Organized Health Care Education/Training Program; ATTEND Student in an Organized Health Care Education/Training Program
DX: I63.22 Cerebral infarction due to unspecified occlusion or stenosis of basilar artery (principal); G81.94 Hemiplegia, unspecified affecting left nondominant side; Z20.822 Contact with and (suspected) exposure to COVID-19; R47.81 Slurred speech; I10 Essential (primary) hypertension; I25.10 Atherosclerotic heart disease of native coronary artery without angina pectoris; R29.717 NIHSS score 17; E78.5 Hyperlipidemia, unspecified; R29.810 Facial weakness; R47.1 Dysarthria and anarthria; E05.90 Thyrotoxicosis, unspecified without thyrotoxic crisis or storm; K21.9 Gastro-esophageal reflux disease without esophagitis; M19.90 Unspecified osteoarthritis, unspecified site; I08.3 Combined rheumatic disorders of mitral, aortic and tricuspid valves; R07.89 Other chest pain; Z79.899 Other long term (current) drug therapy; Z86.011 Personal history of benign neoplasm of the brain; Z86.73 Personal history of transient ischemic attack (TIA), and cerebral infarction without residual deficits; Z79.82 Long term (current) use of aspirin; Z79.1 Long term (current) use of non-steroidal anti-inflammatories (NSAID)
CPT/HCPCS: 0240U; 36415; 36416; 70450; 70496; 70498; 70551; 71045; 80053; 80061; 82550; 84439; 84443; 84484; 85025; 85610; 85730; 93005; 93306; 95712; 95816; 95819; 95957; 96365; 96366; 96376; J0360; J2997; Q9967

== ENCOUNTER 2020-10-15 14:05 | Emergency (ER) | payer MEDICARE, MEDICAID ==
[2020-10-15] MEDS ORDERED: Acetaminophen 500 MG TAB ONE (14:51)
[2020-10-15] MEDS ORDERED: HYDROcodone/Acetaminophen 5/325 mg Tablet ONE (17:08)
== END 2020-10-15 17:10 | disposition home or self-care (01) ==
LOC: ERS 14:05
DX: S62.112A Displaced fracture of triquetrum [cuneiform] bone, left wrist, initial encounter for closed fracture (principal); M25.512 Pain in left shoulder; I10 Essential (primary) hypertension; E78.5 Hyperlipidemia, unspecified; Z86.73 Personal history of transient ischemic attack (TIA), and cerebral infarction without residual deficits; Z79.82 Long term (current) use of aspirin; Z79.899 Other long term (current) drug therapy; W19.XXXA Unspecified fall, initial encounter
CPT/HCPCS: 25630

== ENCOUNTER 2021-03-05 09:27 | Outpatient (CLI) | payer MEDICARE, OTHER ==
[2021-03-05 17:30] LABS: SARS-CoV-2 PCR by NAA Not Detected (NotDetected)
== END 2021-03-05 09:28 | disposition home or self-care (01) ==
LOC: LABBT 09:27
PROVIDERS: ATTEND Family Medicine
DX: Z01.812 Encounter for preprocedural laboratory examination (principal); Z20.822 Contact with and (suspected) exposure to COVID-19
CPT/HCPCS: U0003; U0005

== ENCOUNTER 2021-03-06 08:49 | Outpatient (CLI) | payer MEDICARE, OTHER | END 2021-03-06 08:50 | disposition home or self-care (01) | PROVIDERS: ATTEND Student in an Organized Health Care Education/Training Program | DX: I69.391 Dysphagia following cerebral infarction (principal); R13.10 Dysphagia, unspecified; R63.30 Feeding difficulties, unspecified | CPT/HCPCS: 74230 ==

== ENCOUNTER 2021-03-23 11:11 | Emergency (ER) | payer MEDICARE, OTHER | END 2021-03-23 12:12 | disposition home or self-care (01) | LOC: ERS 11:11 | DX: B35.6 Tinea cruris (principal); I10 Essential (primary) hypertension; E78.5 Hyperlipidemia, unspecified; Z86.73 Personal history of transient ischemic attack (TIA), and cerebral infarction without residual deficits; Z79.82 Long term (current) use of aspirin; Z79.899 Other long term (current) drug therapy | CPT/HCPCS: 99282 ==

== ENCOUNTER 2024-03-08 09:39 | Emergency (ER) | payer MEDICARE, OTHER | END 2024-03-08 11:26 | disposition home or self-care (01) | LOC: ERS 09:39 | DX: B37.9 Candidiasis, unspecified (principal); I10 Essential (primary) hypertension | CPT/HCPCS: 99282 ==

== ENCOUNTER 2025-01-12 14:05 | Emergency (ER) | payer OTHER ==
[2025-01-12 14:58] LABS: Bacteria/HPF None Seen HPF (None Seen); CAUTI Indications for Culture Acute Hematuria; Glucose, Urine (Dipstick) Normal (Negative); Leukocyte Negative Leu/uL (Negative); Protein, Urine (Dipstick) 20 mg/dL (Neg-Trace); RBC/HPF Greater than 50 HPF (0-3); Specific Gravity, Urine 1.012 (1.002-1.036); Yeast-Budding 2+ HPF (None Seen)
[2025-01-12 14:59] LABS: Urine Culture Reflex No No
[2025-01-12 15:21] LABS: #Basophils 0.04 10x3/uL (0.0-0.2); #Eosinophils 0.18 10x3/uL (0.0-0.7); #Monocytes 0.47 10x3/uL (0.11-0.59); #Neutrophils 2.25 10x3/uL (1.40-6.50); %Basophils 1.0 % (0.0-1.0); %Eosinophils 4.6 % (0.0-10.0); %Lymphocytes 24.2 % (21.0-51.0); %Monocytes 12.1 % (0.0-10.0); %Neutrophils 57.8 % (42.0-75.0); Hematocrit 35.7 % (42.0-52.0); Hemoglobin 12.0 g/dL (14.0-18.0); Mean Corpuscular Hemoglobin 27.8 pg (27.0-31.0); Mean Corpuscular Volume 82.8 fL (78.0-98.0); Platelet Count 222 10x3/uL (130-400); Red Blood Cell (RBC) Count 4.31 mill/uL (4.70-6.10); White Blood Cell (WBC) Count 3.89 10x3/uL (4.8-10.8)
[2025-01-12 15:35] LABS: ALT (SGPT) 13 U/L (Less than 45); AST (SGOT) 24 U/L (11-34); Albumin 3.8 g/dL (3.1-4.5); Alkaline Phosphatase 70 U/L (40-110); Anion Gap 10 mmol/L (10-20); BUN (Urea Nitrogen) 11 mg/dL (8.4-25.7); Bilirubin, Total 0.5 mg/dL (0.3-1.2); Calc. Creatinine Clearance 0 mL/min (70-130); Calcium 9.3 mg/dL (7.8-10.44); Carbon Dioxide 25 mmol/L (23-31); Chloride 105 mmol/L (98-107); Globulin 3.3 g/dL (2.4-3.5); Glucose 78 mg/dL (80-115); Lipase 25 U/L (8-78); Potassium 3.4 mmol/L (3.5-5.1); Sodium 137 mmol/L (136-145)
== END 2025-01-12 15:48 | disposition home or self-care (01) ==
LOC: ERS 14:05
DX: R31.0 Gross hematuria (principal); D64.9 Anemia, unspecified; E87.6 Hypokalemia; I10 Essential (primary) hypertension; Z55.6 Problems related to health literacy
CPT/HCPCS: 80053; 81001; 83690; 85025; 87086; 99283

== ENCOUNTER 2025-05-10 15:10 | Emergency (ER) | payer OTHER ==
[2025-05-10] MEDS ORDERED: HYDROcodone/Acetaminophen 10/325 mg Tablet ONE (15:33)
== END 2025-05-10 16:15 | disposition home or self-care (01) ==
LOC: ERS 15:10
DX: S43.401A Unspecified sprain of right shoulder joint, initial encounter (principal); I10 Essential (primary) hypertension; E78.5 Hyperlipidemia, unspecified; Z86.73 Personal history of transient ischemic attack (TIA), and cerebral infarction without residual deficits; X58.XXXA Exposure to other specified factors, initial encounter
CPT/HCPCS: 99283